=== PATIENT | female | born 1940 | race Caucasian/White ===

== ENCOUNTER → 2016-09-02 | Outpatient (CLI) | payer OTHER ==
[~2016-09-02] MED LIST: ANAS1TAB19 PO; ASPI81TA28 PO; ATEN-171 PO; B-COCAP2 PO; CHOLTAB3 PO; CYAN500T PO; CYTM25 PO; GLIP5TAB11 PO; LEVO125T72 PO; LISI40TA PO; MULT-513 PO; OMEG12006 PO
[2016-09-02 13:13] VITALS: BP 91/65; PULSE 79; TEMP 36.9; O2SAT 96
--- NOTE | 2016-09-02 16:41 | Radiation Oncology Follow-Up ---
Radiation Oncology Follow-Up Date of Visit Sep 02, 2016. Reason For Visit Annual follow-up Radiation Completion Date 01/31/15 Diagnosis (1) Breast cancer Status: Resolved Onset Date: 06/11/2014 Histology Subtype: ductal Stage: l Permanent Comment: Status post right breast lumpectomy and sentinel lymph node biopsy in 2002 Stage [id number] estrogen receptor positive, progesterone receptor positive, HER- 2/debora negative Systemic chemotherapy with CMF Status post completion of radiation therapy received 6120 cGy treatment given to the cavity and a boost to the chest wall 5 years of tamoxifen Abnormal right breast mammogram 04/04/2014 Status post ultrasound-guided biopsy 04/26/2014 revealing invasive ductal carcinoma Estrogen receptor positive, progesterone receptor positive, HER-2/debora 2+ negative by fish Status post bilateral mastectomies 06/11/2014 Left breast infiltrating ductal carcinoma sentinel lymph node biopsy performed pathologic stage [id number] 2 lesions in the right breast infiltrating ductal carcinoma sentinel lymph node biopsy was not performed due to prior surgery stage pTIbNX Status post systemic chemotherapy with TCH for 6 cycles Status post completion of radiation therapy to the right chest wall supra clavicle and axilla 02/01/2015 received 6120 cGy Ongoing treatment with Herceptin. Ongoing treatment with Arimidex Last Edited By: Noreen Clifford on Mar 01, 2015 14:58 History of Present Illness This is a 76-year-old white female known to our office from prior radiation therapy. She was diagnosed with infiltrating ductal carcinoma the right breast. Stage TIcN1 M0 .Shalini receptor positive progesterone receptor positive and HER-2/ debora was negative. She received chemotherapy with CMF. Following completion of the chemotherapy she received the radiation. She received 6120 cGy and was treated from 12/26/2002 to 02/24/2003. She was then placed on tamoxifen. She took tamoxifen for 5 years. She has had follow-up mammography. Her mammogram on 04/04/2014 showed an irregular 8 mm mass in the right lateral subareolar region. Recommended ultrasound core biopsy. This was performed on 04/26/2014. Biopsy at the 9 o'clock position revealed invasive ductal carcinoma. Milagros grade 2 of 3, involving multiple cores, measured at least 0.7 cm in greatest dimension. This was ER positive GA positive and HER-2/debora showed staining 2+. The tumor for HER-2/debora was negative by fish. Case #1 [id number]. The patient was seen by Dr. Andrade and on 06/11/2014. She underwent bilateral simple mastectomies. The left breast specimen revealed infiltrating ductal carcinoma grade 1 of 3. Tumor size was 1.6 x 0.5 cm. There was no skin involvement. Tumor was focal. DCIS was present and high grade without necrosis. Extensive DCIS was present. Margin was negative. There was no lymphovascular invasion and no perineural invasion. Estrogen receptor was positive progesterone receptor positive and HER-2/debora was negative. Lymph node evaluation showed one sentinel lymph node was negative for metastatic disease. This was staged at pTic pN0. Specimen of the right breast showed 2 separate infiltrating ductal carcinomas. The medial tumor involved skeletal muscle and is at the inked deep margin. The medial tumor measured 1.5 x 1.5 x 1 cm. It was grade 3 of 3. Skeletal muscle involvement was present. DCIS was not seen. Lymphovascular invasion and perineural invasion were negative. Estrogen receptor was positive progesterone receptor was positive and HER-2/debora was positive. Due to the positive margin staging was difficult to determine. It would be pT1c if this was the true margin. Because it invades into the skeletal muscle this could be then staged at pT4 NX. The second lesion was an infiltrating ductal carcinoma and was grade 2 of 3. It measured 1 x 1 x 1 cm. There was no DCIS. Margin was negative. There was no lymphovascular or perineural invasion. Estrogen receptor was positive and progesterone receptor was positive HER-2/debora was negative by fish. This was staged at pT1b NX. She had a PET scan on 05/14/2014 which was negative for metastatic disease. She has been seen by Dr. Jessee Cardenas. It is recommended that she undergo 6 cycles of chemotherapy with TCH. She completed 6 cycles of TCH and return to our office to undergo radiation therapy. Radiation to the right chest wall, supra clavicle, and axilla were completed in January [id number]. She received 6120 cGy Interim History She's been doing well over this past year. She denies any changes to her chest wall. She has noted no masses or tenderness and no change of the axilla. She has noticed no swelling of her arm. She's had no swelling of her hand. She does have discomfort with repetitive work. She noted that this especially when raking leaves. She does shovel snow. She has no problems with range of motion of the shoulder. She had her port removed. She has been having problems with her knee and may have to have surgery in the future. She denies difficulty with the Arimidex. Allergies Coded Allergies: Antihistamines, Diphenhydramine-typ (Verified Allergy, Unknown, ALLERGY TO ANTIHISTAMINES? BENADRYL-RED FLUSHED, FEELS HOT, 06/01/14) Celecoxib (Verified Allergy, Unknown, CELEBREX ALLERGY-RASH, 06/01/14) Oxycodone (Verified Allergy, Unknown, NAUSEA AND VOMITING, 06/01/14) Penicillins (Verified Allergy, Unknown, FLUSHING CHEST/FACE 25 YRS AGO, NO SOB OR SWELLING, 06/01/14) SHELLFISH (Verified Allergy, Unknown, rash on face/neck, 06/01/14) Sages (Verified Allergy, Unknown, RED FACE FLUSHED, 06/01/14) Home Medications Scheduled Anastrozole (Arimidex), 1 TAB PO DAILY Aspirin (Aspirin Ec), 81 MG PO DAILY Atenolol/Chlorthalidone (Tenoretic 50 Mg/25 Mg), 1 TAB PO DAILY Cyanocobalamin (Vitamin B-12), 500 MCG PO DAILY Ergocalciferol (Vitamin D), 800 INTER.UNIT PO DAILY Glipizide (Glucotrol), 5 MG PO DAILY Levothyroxine Sodium (Synthroid), 125 MCG PO DAILY Lisinopril (Zestril), 40 MG PO DAILY Multivitamins/Minerals (Mvi With Minerals), 1 TAB PO DAILY Ambler-3 Fatty Acids (Ambler 3), 1,000 MG PO DAILY Vitamin B Cmplx/Vitc/Folic Ac (Nephrocaps), 1 CAP PO DAILY Review of Systems Gastrointestinal: Symptoms: WNL Oral: Symptoms: No Problems Respiratory: Symptoms: Dry Cough Urinary: Symptoms: WNL Skin: Symptoms: No Problems Breast: Right Upper Arm Measurement: 39.4 Right Mid Arm Measurement: 30.0 Right Wrist Measurement: 18.5 Left Upper Arm Measurement: 40.5 Left Mid Arm Measurement: 31.5 Left Wrist Measurement: 19.0 Arm Dominence: Right Physical Exam Vital Signs Date Time Temp Pulse Resp B/P Pulse Ox O2 Delivery O2 Flow Rate FiO2 09/02/16 13:13 36.9 79 24 91/65 96 Pain: Pain Onset: 2 months Pain Duration: intermet Patient Pain Scale: 0 - 10 Initial Pain Intensity: 4.0 Pain Description: Aching Fatigue: None General Appearance: no apparent distress Eyes: normal inspection, EOMI ENT: normal ENT inspection, hearing grossly normal Neck: no adenopathy, thyroid normal Respiratory/Chest: lungs clear, no respiratory distress, no accessory muscle use Breast: Chest examination reveals bilateral mastectomies. There are no masses or tenderness and no axillary adenopathy. Bilaterally she has multiple moles and keratotic lesions. These are less on the right than on the left. There is no tenderness. No problems with range of motion of the right shoulder. Cardiovascular: regular rate, rhythm, no gallop, no murmur Abdomen: non tender Extremities: no pedal edema Neurologic/Psychiatric: no motor/sensory deficits, alert, normal mood/affect Skin: warm/dry Lymphatic: no adenopathy Assessment & Plan Plan: Continue regular follow-up with medical oncology. She continues on anastrozole. Recheck laboratory studies and scanning per Dr. Cardenas. Continue follow-up with her primary care physician. We asked her to return to our office in 1 year. You may call if she has any questions or concerns with be happy to see her. Total Time In Follow-Up I spent 20 minutes speaking to the patient performing examination. I spent 15 minutes reviewing information and completing this note. Copy To Caroline Jin D.O.; Jessee Cardenas M.D. Problem Qualifiers (1) Breast cancer: Breast location: central portion of breast Patient sex: female Laterality: right Qualified Codes: C50.111 - Malignant neoplasm of central portion of right female breast
== END | disposition home or self-care (01) ==
LOC: C.ONC 13:01
PROVIDERS: ATTEND Radiology Radiation Oncology
DX: Z08 Encounter for follow-up examination after completed treatment for malignant neoplasm (principal); Z92.3 Personal history of irradiation; Z85.3 Personal history of malignant neoplasm of breast